=== PATIENT | male | born 1985 | race Caucasian/White ===

== ENCOUNTER 2024-03-09 10:06 | Emergency (ER) | payer OTHER ==
[~2024-03-09] VITALS: Ht 167.6 cm; Wt 76.5 kg
[2024-03-09] MEDS ORDERED: IBUP200C29 PO (10:13)
[2024-03-09 12:44] VITALS: BP 120/67; TEMP 96.7; O2SAT 100
[2024-03-09] MEDS ORDERED: CEPH500C PO (13:19)
== END 2024-03-09 13:28 | disposition home or self-care (01) ==
LOC: M ED 10:06
DX: L03.115 Cellulitis of right lower limb (principal); Z79.2 Long term (current) use of antibiotics; Z79.1 Long term (current) use of non-steroidal anti-inflammatories (NSAID)

== ENCOUNTER → 2025-02-05 | Outpatient (CLI) | payer OTHER ==
[~2025-02-05] MED LIST: CEPH500C PO; IBUP200C29 PO; ISOVUE-370 76% 100 ML VIAL ONE
== END ==
LOC: M PLAIMG 09:35
PROVIDERS: ATTEND Surgery
DX: R10.31 Right lower quadrant pain (principal); R10.2 Pelvic and perineal pain; K63.89 Other specified diseases of intestine
CPT/HCPCS: 74177; Q9967